=== PATIENT | male | born 1990 | race Caucasian/White ===

== ENCOUNTER 2020-01-20 05:37 | Inpatient (IN) | payer SELFPAY ==
[2020-01-20] VITALS (43 sets, daily range): BP systolic 121–179; BP diastolic 62–105; PULSE 103–120; RESP 14–35; TEMP 36.3–38; O2SAT 96–100; BMI 22.9
--- NOTE | 2020-01-20 05:39 | XRR_ITS ---
PROCEDURE INFORMATION: Exam: XR Chest, 1 View Exam date and time: 01/20/2020 5:50 AM Age: 29 years old Clinical indication: Chest pain; Type not specified; Patient HX: PT refused to give history; Additional info: Cp TECHNIQUE: Imaging protocol: XR of the chest Views: 1 view. COMPARISON: No relevant prior studies available. FINDINGS: Lungs: Unremarkable. No consolidation. Pleural space: Unremarkable. No pleural effusion. No pneumothorax. Heart/Mediastinum: Unremarkable. No cardiomegaly. Bones/joints: Unremarkable. XR/XR chest 1V portable [id number] IMPRESSION: No acute findings.
--- NOTE | 2020-01-20 05:39 | ECG_ITS ---
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 Measurements Intervals [place] Rate: 99 P: 78 MS: 131 QRS: 83 QRSD: 92 T: 71 QT: 340 QTc: 438 Interpretive Statements SINUS RHYTHM No previous ECG available for comparison Electronically Signed On 01-20-2020 21:12:33 MASTER OCEAN YACHT by Noemy Hill M.D. [id number]
--- NOTE | 2020-01-20 05:44 | ED_ITS ---
HPI - Psych General: Chief Complaint: Psychiatric Symptoms Stated Complaint: SI Time Seen by Provider: 01/20/20 05:39 Source: patient and EMS Mode of arrival: EMS Limitations: no limitations History of Present Illness: HPI Narrative: Harry is a 29-year-old male who attempted suicide this morning. He drank customer care representative fluid also try to cut his throat. He does have very superficial laceration left throat. He has vomited once per EMS. Patient has no shortness of breath. Denies any other ingestions. He states he has drank some alcohol as well. Associated symptoms: Reports depression and suicidal ideation Review of Systems Const: Denies: fever(s), chills, body aches or change in appetite Eyes: Denies: blurry vision or eye discomfort ENMT: Denies: throat pain or dental pain Card: Denies: chest pain Resp: Denies: dyspnea GI: Denies: abdominal pain, nausea, vomiting or diarrhea : Denies: dysuria Musc: Denies: neck pain or back pain Skin/Breast: Denies: rash Neuro: Denies: headache(s) Psych: Reports: depression and suicidal ideation Alonzo/Lymph: Denies: easy bruising All/Imm: Denies: urticaria Physical Exam Const: COMMON NORMALS: no acute distress, patient oriented x3 and healthy appearing HENMT: COMMON NORMALS: normocephalic and atraumatic HEAD & SCALP: normocephalic and atraumatic Eye: COMMON NORMALS: Equal, round and reactive pupils present and EOMs intact bilaterally PUPIL: Yes Equal, round and reactive pupils present Neck/C-Spine: COMMON NORMALS: full ROM and supple OTHER: Very superficial less than 1 cm laceration to left side of neck Chest: COMMONS NORMALS: normal inspection of the chest and normal palpation of entire chest wall Resp: COMMON NORMALS: normal respiratory effort, No retractions, No use of accessory muscles and clear to auscultation bilaterally AUSCULTATION: clear to auscultation bilaterally Cardio: COMMON NORMALS: regular rate, regular rhythm and No murmurs present (Cardio) RATE: regular rate RHYTHM: regular rhythm GI: COMMON NORMALS: Normal to inspection, nondistended, normoactive bowel sounds present, Soft to palpation, non-tender and no masses PALPATION: Yes Soft to palpation Extremity: COMMON NORMALS: normal to inspection and full ROM Neuro: COMMON NORMALS: patient oriented x3, moves all extremities and no focal motor deficits Psych: COMMON NORMALS: mental status grossly normal, Normal thought process present and cooperative THOUGHT PROCESS: Normal thought process present THOUGHT CONTENT: Yes Suicidality present Skin: COMMON NORMALS: no rashes or lesions noted and no wounds GENERAL SKIN EXAM: no rashes or lesions noted MDM - Psych MDM Narrative: Medical decision making narrative: Patient presents here with a suicide attempt after drinking customer care representative fluid. He has no signs of aspiration here but does have an elevated white count had some vomiting. I spoke to hospitalist and will admit to the ICU to monitor his pulmonary function. I believe after 24-hour stay he will be stable for transfer to the psych unit. I also spoke to the psychiatrist who is consulted. Patient has been stable on the ER. Lab Data: Labs: Lab Results 01/20/20 01/20/20 Range/Units 05:43 05:43 WBC 19.5 H (4.0-10.0) 10^3/ uL RBC 5.90 H (4.1-5.3) 10^6/u L Hgb 11.6 L (11.7-16.6) g/dL Hct 37.2 L (42.0-52.0) % MCV 63.1 L (80-94) fL MCH 19.7 L (28.0-34.0) pg MCHC 31.2 (30.0-36.0) g/dL RDW 18.3 H (12.1-15.1) % Plt Count 647 H (130-400) 10^3/c mm MPV 8.8 (7.4-10.4) fL Neut % (Auto) 60.1 % Lymph % (Auto) 26.5 % Todd % (Auto) 12.0 % Eos % (Auto) 0.2 % Baso % (Auto) 0.6 % Neut # (Auto) 11.73 H (1.8-7.7) 10^3/u L Lymph # (Auto) 5.2 H (0.8-4.8) 10^3/u L Todd # (Auto) 2.3 H (0.2-0.9) 10^3/u L Eos # (Auto) 0.0 (0.0-0.8) 10^3/u L Baso # (Auto) 0.1 (0.0-0.1) 10^3/u L Nucleated RBC % (a uto) 1.8 % Nucleated RBCs # 0.4 /100WBC Sodium 137 (136-145) mmol/L Potassium 3.8 (3.5-5.1) mmol/L Chloride 101 (98-107) mmol/L Carbon Dioxide 21 L (22-29) mmol/L Anion Gap 18.8 (5-19) BUN 23 H (6-20) mg/dL Creatinine 0.6 L (0.7-1.2) mg/dL GFR Calculation 160.4 H (90-130) mL/min Glucose 85 (65-115) mg/dL Calculated Osmolal ity 287 (285-295) mOsm/k g Calcium 9.3 (8.5-10.5) mg/dL Total Bilirubin 1.3 H (0.15-1.2) mg/dL AST 71 H (0-40) U/L ALT 90 H (0-41) U/L Alkaline Phosphata se 115 (40-130) IU/L Total Protein 7.6 (6.6-8.7) g/dL Albumin 4.5 (3.5-5.2) g/dL Globulin 3.1 (1.3-4.6) g/dL Salicylates < 0.3 L (3-10) mg/dL Acetaminophen < 5.0 L (10-30) ug/mL Ethyl Alcohol 39 H (0-10) mg/dL Imaging Data^: CXR: Attestation: I personally reviewed and interpreted this imaging study as follows: My impression: nsr hr [address] or t wave abnormalities qrs 92 qtc 396 Critical Care Time Critical Care Time: Critical Care Time: Yes Total Critical Care Time: 36 Attestation: [address] [address] [address] Scan Report Signed Patient: Israel Morataya Unit #: [id number] : 07/07/1936 Age/Sex: 83 / M ADM Date: 01/20/20 Loc: ER Room/Bed: Attending Dr: Ordering Provider/Ordering MD: Amilcar Connor MD Date of Service: 01/20/20 Procedure(s): CT abdomen pelvis w con* [id number] Accession Number(s): [id number] Report Number: [id number] PROCEDURE INFORMATION: Exam: CT Abdomen And Pelvis With Contrast Exam date and time: 01/20/2020 6:55 AM Age: 83 years old Clinical indication: Abdominal pain; Localized; Right upper quadrant (ruq); Prior surgery; Surgery date: 6+ months; Surgery type: Hernia, appy, cabg; Additional info: Abd pain TECHNIQUE: Imaging protocol: Computed tomography of the abdomen and pelvis with intravenous contrast. Radiation optimization: All CT scans at this facility use at least one of these dose optimization techniques: automated exposure control; mA and/or kV adjustment per patient size (includes targeted exams where dose is matched to clinical indication); or iterative reconstruction. Contrast material: VISIPAQUE 320; Contrast volume: 95 ml; Contrast route: INTRAVENOUS (IV); COMPARISON: Right upper quadrant ultrasound 01/20/20 RADIATION DOSE METRICS: Total DLP (mGy-cm): 523.82 FINDINGS: Pleural space: Interstitial prominence, trace airspace disease, and mild pleural thickening. Coronary artery calcification. Liver: Hepatic granulomata. Gallbladder and bile ducts: Markedly abnormal gallbladder with dilatation, cholelithiasis, high attenuation bile, infiltration of pericholecystic fat, and pericholecystic fluid. The findings would be consistent with acute cholecystitis in the appropriate clinical setting. No biliary ductal dilatation. Pancreas: Ultrasound detected pancreatic ductal dilatation is poorly visualized on CT. No focal pancreatic mass. Spleen: Splenic granulomata. Adrenal glands: Unremarkable adrenals. Kidneys and ureters: 5 mm nodular hypodensity in the lateral right kidney which is too small to accurately characterize. No hydronephrosis. Stomach and bowel: Mild wall thickening in the nondistended stomach. No significant small bowel dilatation. Prominent stool and diverticula, without pericolonic inflammation. Localized wall thickening in the a padded flexure. Appendix: Appendix not visualized. Intraperitoneal space: No dependent free fluid in the pelvis. Vasculature: Prominent vascular calcification and atherosclerotic plaque. No abdominal aortic aneurysm. Lymph nodes: Subcentimeter lymph nodes. Urinary bladder: Bladder dilatation. Reproductive: Poorly characterized 1.4 cm nodular hypodensity in the left inferolateral aspect of the prostate, along with calcifications and inhomogeneous attenuation. Bones/joints: 2.4 cm intraosseous hemangioma in the L4 vertebral body. Osteopenia and degenerative change. Soft tissues: Mild symmetric infiltration of subcutaneous fat in the anterior abdominal wall. CT/CT abdomen pelvis w con* [id number] IMPRESSION: 1. Markedly abnormal gallbladder with dilatation, cholelithiasis, high attenuation bile, infiltration of pericholecystic fat, and pericholecystic fluid. The findings would be consistent with acute cholecystitis in the appropriate clinical setting. 2. Additional findings as described above. Discharge Plan Discharge Patient Disposition: Admitted As Inpatient Clinical Impression: Suicidal ideation, Overdose Condition: Stable Coding Level of Care Code ED [employer] Professor for Sujey Fwd Exam Comprehensive
[2020-01-20] MEDS: LORazepam 2 mg/mL INJ 1 mL IVP ×5 (05:52→12:25)
[2020-01-20 05:54] LABS: Basophils # 0.1 10^3/uL (0.0-0.1); Basophils % 0.6 %; Eosinophils % 0.2 %; Hematocrit 37.2 % (42.0-52.0); Hemoglobin 11.6 g/dL (11.7-16.6); Lymphocytes # 5.2 10^3/uL (0.8-4.8); Lymphocytes % 26.5 %; Mean Corpuscular HGB Conc 31.2 g/dL (30.0-36.0); Mean Corpuscular Hemoglobin 19.7 pg (28.0-34.0); Mean Corpuscular Volume 63.1 fL (80-94); Mean Platelet Volume 8.8 fL (7.4-10.4); Monocytes # 2.3 10^3/uL (0.2-0.9); Neutrophils # 11.73 10^3/uL (1.8-7.7); Neutrophils % 60.1 %; Nucleated Red Blood Cells # 0.4 /100WBC; Nucleated Red Blood Cells % 1.8 %; Platelet Count 647 10^3/cmm (130-400); Red Cell Distribution Width 18.3 % (12.1-15.1); White Blood Count 19.5 10^3/uL (4.0-10.0)
[2020-01-20 06:19] LABS: Acetaminophen < 5.0 ug/mL (10-30); Alanine Aminotransferase 90 U/L (0-41); Albumin Level 4.5 g/dL (3.5-5.2); Alcohol Level 39 mg/dL (0-10); Alkaline Phosphatase 115 IU/L (40-130); Anion Gap 18.8 (5-19); Aspartate Amino Transferase 71 U/L (0-40); Blood Urea Nitrogen 23 mg/dL (6-20); Calcium 9.3 mg/dL (8.5-10.5); Carbon Dioxide 21 mmol/L (22-29); Chloride 101 mmol/L (98-107); Globulin 3.1 g/dL (1.3-4.6); Glomerular Filtration Rate 160.4 mL/min (90-130); Glucose 85 mg/dL (65-115); Osmolality Calculated 287 mOsm/kg (285-295); Potassium 3.8 mmol/L (3.5-5.1); Salicylate < 0.3 mg/dL (3-10); Sodium 137 mmol/L (136-145); Total Bilirubin 1.3 mg/dL (0.15-1.2); Total Protein 7.6 g/dL (6.6-8.7)
--- NOTE | 2020-01-20 06:44 | PC.NURSE ---
attempted to remove silver ring from R 4th finger while pt was sedated. Pt attempted to bite staff
[2020-01-20] MEDS: haloperidol inj 5 mg/mL INJ 1 mL IM ×2 (07:39→08:52)
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
--- NOTE | 2020-01-20 09:27 | PC.NURSE ---
Patient Behaviors Patient has been physically restless since day shift arrival at 0700. Tech and RN had to continuously redirect patient into bed, assisted patient to bedside commode multiple times, patient would not use bedside commode and had bowel movements in his scrubs, bed, or directly on the floor. Patient was cleaned, dressed with clean scrubs/briefs, new sheets replaced, and redirected back to bed multiple times. Patient continued to get out of bed and almost fall due to medications and patient condition prior to arrival. Patient swung at nurse when attempt to clean feces off patient. Patient stated he was trying to leave. Security and extra hands were called to assist. Patient sat himself in floor for a brief period before standing and passing diarrhea bowel movement into floor and wall. Patient was cleaned up, placed into a new brief, and placed into restraint bed. Patient was cleaned of feces again with clean wet wash rags and given more medication to help calm patient.
--- NOTE | 2020-01-20 10:43 | PC.NURSE ---
patients cellphone released to grandmother
[2020-01-20 10:48] LABS: Creatine Phosphokinase 829 U/L (39-308)
--- NOTE | 2020-01-20 11:05 | PC.NURSE ---
Talked with Pete at poison control at 1105, updated him on patients behavioral status, lab results, medications given, and current vital signs. Pete stated he would call back later to talk to ICU with an update. No further instructions given at this time.
[2020-01-20] MEDS: LORazepam 2 mg/mL INJ 1 mL 4 MG IVP (13:01)
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
[2020-01-20] MEDS: sodium chloride 0.9% 1,000 ML 999 ML IV ×2 (14:40→15:15)
--- NOTE | 2020-01-20 15:05 | PC.NURSE ---
After ketamine administration and straight catherization, patients feet were released from restraints.
--- NOTE | 2020-01-20 15:20 | PC.NURSE ---
Restraint update Patients left arm released from restraint at 1500
[2020-01-20 15:24] LABS: Amphetamines Screen Urine Positive (Negative); Barbiturates Screen Urine Negative (Negative); Benzodiazepines Screen Urine Positive (Negative); Cocaine Screen Urine Negative (Negative); Opiate Screen Urine Negative (Negative); PCP Screen Urine Negative (Negative); THC Screen Urine Negative (Negative)
[2020-01-20 15:54] LABS: Basophils # 0.1 10^3/uL (0.0-0.1); Basophils % 0.4 %; Hematocrit 33.8 % (42.0-52.0); Hemoglobin 10.5 g/dL (11.7-16.6); Lymphocytes # 2.6 10^3/uL (0.8-4.8); Lymphocytes % 11.2 %; Mean Corpuscular HGB Conc 31.1 g/dL (30.0-36.0); Mean Corpuscular Hemoglobin 19.8 pg (28.0-34.0); Mean Corpuscular Volume 63.7 fL (80-94); Mean Platelet Volume 9.2 fL (7.4-10.4); Monocytes # 2.5 10^3/uL (0.2-0.9); Monocytes % 10.7 %; Neutrophils # 18.06 10^3/uL (1.8-7.7); Neutrophils % 77.1 %; Nucleated Red Blood Cells # 0.3 /100WBC; Nucleated Red Blood Cells % 1.1 %; Platelet Count 583 10^3/cmm (130-400); Red Blood Count 5.31 10^6/uL (4.1-5.3); Red Cell Distribution Width 17.8 % (12.1-15.1); White Blood Count 23.4 10^3/uL (4.0-10.0)
[2020-01-20] MEDS: sodium chloride 0.9% 1,000 ML 150 ML IV (16:30)
[2020-01-20 16:42] LABS: Creatine Phosphokinase 986 U/L (39-308)
[2020-01-20 17:30] LABS: ABG PCO2 34.5 mmHg (35-45); Arterial Blood Gas Hematocrit 36.9 % (42-52); Base Excess ABG -8.6 mmol/L (-2.0-2.0); Blood Gas Allen Test Pos; Blood Gas Operator Identificat CAK; Blood Gas Sample Site Radial, left; Blood Gas Sample Type Arterial; Carboxyhemoglobin 1.3 %THgb (0.4-20.1); HGB O2 Sat 81.7 % (95-100); Ionized Calcium Level - ABG 1.2 mmol/L (1.1-1.4); Oxygen Device ROOM AIR; Oxygen Saturation ABG 83.6; Potassium Level - ABG 4.1 mmol/L (3.5-5.0); Total Hemoglobin 12.1 g/dL (14-18)
[2020-01-20] MEDS: vecuronium 10 mg SDV IVP (17:40)
[2020-01-20] MEDS: succinylcholine 20 mg/mL SDV 10mL 200 MG IVP (17:40)
[2020-01-20 17:43] LABS: CKMB 5.4 ng/mL (0-10.4)
--- NOTE | 2020-01-20 17:44 | ED_ITS ---
HPI - Psych General: Chief Complaint: Psychiatric Symptoms Stated Complaint: SI Time Seen by Provider: 01/20/20 05:39 Source: patient and EMS Mode of arrival: EMS [facility] ED PFSH: Medical History (Updated 01/20/20 @ 09:37 by Filomena Robles MD) Hepatitis C Polysubstance abuse Surgical History (Updated 01/20/20 @ 09:05 by Filomena Robles MD) History of dental surgery Hx of tonsillectomy Family History (Updated 01/20/20 @ 09:22 by Filomena Robles MD) Grandmother Psychiatric illness depression Social History (Updated 01/20/20 @ 09:25 by Filomena Robles MD) Smoking and tobacco status: current every day smoker cigarettes Packs smoked per day: 1 Alcohol intake: unknown Substance/Drug Use: current Substance/Drug use type: Marijuana, Opiates and Methamphetamine Household members: family Marital status: Single Current occupational status: unemployed Procedures Intubation Time out performed: No sedative: Etomidate Mg Given: 40 paralytic: Succinylcholine Mg Given: 200 Laryngoscope: Tamera (4) ET Tube Size: 8 ET Tube Uncuffed: Yes Tube Secured Depth (cm): 24 Tube Secured Location: teeth Tube Placement Confirmation: visualized tube passing through cords and confirmation by capnometry Patient Tolerated Procedure: well and no complications Intubation Complications: none MDM - Psych MDM Narrative: Medical decision making narrative: 29-year-old male still in the ER after intact for ICU admission, as there are is no bed ready for him quite yet. He had a period of desaturation on the monitor. He was also gagging, and we were worried he may vomit. Blood gas was obtained and showed despite good saturations on the monitor, his PO2 was actually 54. His pH was 7.3. The pH is likely metabolic as his bicarbonate level is down still, but because of the hypoxia and his inability to maintain his airway along with his risk of vomiting, it was thought safest to intubate the patient. This was accomplished with no complications here in the ER. Lab Data: Labs: Lab Results 01/20/20 01/20/20 01/20/20 Range/Units 05:43 05:43 05:43 WBC 19.5 H (4.0-10.0) 10^3/ uL RBC 5.90 H (4.1-5.3) 10^6/u L Hgb 11.6 L (11.7-16.6) g/dL Hct 37.2 L (42.0-52.0) % MCV 63.1 L (80-94) fL MCH 19.7 L (28.0-34.0) pg MCHC 31.2 (30.0-36.0) g/dL RDW 18.3 H (12.1-15.1) % Plt Count 647 H (130-400) 10^3/c mm MPV 8.8 (7.4-10.4) fL Neut % (Auto) 60.1 % Lymph % (Auto) 26.5 % Marin % (Auto) 12.0 % Eos % (Auto) 0.2 % Baso % (Auto) 0.6 % Neut # (Auto) 11.73 H (1.8-7.7) 10^3/u L Lymph # (Auto) 5.2 H (0.8-4.8) 10^3/u L Marin # (Auto) 2.3 H (0.2-0.9) 10^3/u L Eos # (Auto) 0.0 (0.0-0.8) 10^3/u L Baso # (Auto) 0.1 (0.0-0.1) 10^3/u L Nucleated RBC % (a uto) 1.8 % Nucleated RBCs # 0.4 /100WBC Specimen Type Sample Site ABG pH (7.35-7.45) ABG pCO2 (35-45) mmHg ABG pO2 (80.0-100.0) mmH g ABG HCO3 (22-26) mmol/L ABG O2 Saturation ABG Base Excess (-2.0-2.0) mmol/ L Mj Test A-a O2 Gradient (5-10) mmHg Hematocrit (42-52) % Hgb O2 Saturation (95-100) % Carboxyhemoglobin (0.4-20.1) %THgb Methemoglobin (0.4-1.5) % Total Hemoglobin (14-18) g/dL Ionized Calcium (1.1-1.4) mmol/L O2 Delivery Device FiO2 % Pv Design And Installation Technician ID Sodium 137 (136-145) mmol/L Potassium 3.8 (3.5-5.1) mmol/L Chloride 101 (98-107) mmol/L Carbon Dioxide 21 L (22-29) mmol/L Anion Gap 18.8 (5-19) BUN 23 H (6-20) mg/dL Creatinine 0.6 L (0.7-1.2) mg/dL GFR Calculation 160.4 H (90-130) mL/min Glucose 85 (65-115) mg/dL Calculated Osmolal ity 287 (285-295) mOsm/k g Calcium 9.3 (8.5-10.5) mg/dL Total Bilirubin 1.3 H (0.15-1.2) mg/dL AST 71 H (0-40) U/L ALT 90 H (0-41) U/L Alkaline Phosphata se 115 (40-130) IU/L Creatine Kinase 829 H* (39-308) U/L CK-MB (CK-2) (0-10.4) ng/mL CK-MB (CK-2) Rel I ndex (0.0-5.3) % Total Protein 7.6 (6.6-8.7) g/dL Albumin 4.5 (3.5-5.2) g/dL Globulin 3.1 (1.3-4.6) g/dL Salicylates < 0.3 L (3-10) mg/dL Urine Opiates Scre en (Negative) ng/mL Acetaminophen < 5.0 L (10-30) ug/mL Ur Barbiturates Sc reen (Negative) ng/mL Ur Phencyclidine S crn (Negative) ng/mL Ur Amphetamines Sc reen (Negative) ng/mL U Benzodiazepines Scrn (Negative) ng/mL Urine Cocaine Scre en (Negative) ng/mL U Marijuana (THC) Screen (Negative) ng/mL Ethyl Alcohol 39 H (0-10) mg/dL 01/20/20 01/20/20 01/20/20 Range/Units 14:51 15:33 15:33 WBC 23.4 H (4.0-10.0) 10^3/ uL RBC 5.31 H (4.1-5.3) 10^6/u L Hgb 10.5 L (11.7-16.6) g/dL Hct 33.8 L (42.0-52.0) % MCV 63.7 L (80-94) fL MCH 19.8 L (28.0-34.0) pg MCHC 31.1 (30.0-36.0) g/dL RDW 17.8 H (12.1-15.1) % Plt Count 583 H (130-400) 10^3/c mm MPV 9.2 (7.4-10.4) fL Neut % (Auto) 77.1 % Lymph % (Auto) 11.2 % Marin % (Auto) 10.7 % Eos % (Auto) 0.0 % Baso % (Auto) 0.4 % Neut # (Auto) 18.06 H (1.8-7.7) 10^3/u L Lymph # (Auto) 2.6 (0.8-4.8) 10^3/u L Marin # (Auto) 2.5 H (0.2-0.9) 10^3/u L Eos # (Auto) 0.0 (0.0-0.8) 10^3/u L Baso # (Auto) 0.1 (0.0-0.1) 10^3/u L Nucleated RBC % (a uto) 1.1 % Nucleated RBCs # 0.3 /100WBC Specimen Type Sample Site ABG pH (7.35-7.45) ABG pCO2 (35-45) mmHg ABG pO2 (80.0-100.0) mmH g ABG HCO3 (22-26) mmol/L ABG O2 Saturation ABG Base Excess (-2.0-2.0) mmol/ L Mj Test A-a O2 Gradient (5-10) mmHg Hematocrit (42-52) % Hgb O2 Saturation (95-100) % Carboxyhemoglobin (0.4-20.1) %THgb Methemoglobin (0.4-1.5) % Total Hemoglobin (14-18) g/dL Ionized Calcium (1.1-1.4) mmol/L O2 Delivery Device FiO2 % Pv Design And Installation Technician ID Sodium (136-145) mmol/L Potassium (3.5-5.1) mmol/L Chloride (98-107) mmol/L Carbon Dioxide (22-29) mmol/L Anion Gap (5-19) BUN (6-20) mg/dL Creatinine (0.7-1.2) mg/dL GFR Calculation (90-130) mL/min Glucose (65-115) mg/dL Calculated Osmolal ity (285-295) mOsm/k g Calcium (8.5-10.5) mg/dL Total Bilirubin (0.15-1.2) mg/dL AST (0-40) U/L ALT (0-41) U/L Alkaline Phosphata se (40-130) IU/L Creatine Kinase 986 H* (39-308) U/L CK-MB (CK-2) 5.4 (0-10.4) ng/mL CK-MB (CK-2) Rel I ndex (0.0-5.3) % Total Protein (6.6-8.7) g/dL Albumin (3.5-5.2) g/dL Globulin (1.3-4.6) g/dL Salicylates (3-10) mg/dL Urine Opiates Scre en Negative (Negative) ng/mL Acetaminophen (10-30) ug/mL Ur Barbiturates Sc reen Negative (Negative) ng/mL Ur Phencyclidine S crn Negative (Negative) ng/mL Ur Amphetamines Sc reen Positive H (Negative) ng/mL U Benzodiazepines Scrn Positive H (Negative) ng/mL Urine Cocaine Scre en Negative (Negative) ng/mL U Marijuana (THC) Screen Negative (Negative) ng/mL Ethyl Alcohol (0-10) mg/dL 15/20 Range/Units 17:19 WBC (4.0-10.0) 10^3/ uL RBC (4.1-5.3) 10^6/u L Hgb (11.7-16.6) g/dL Hct (42.0-52.0) % MCV (80-94) fL MCH (28.0-34.0) pg MCHC (30.0-36.0) g/dL RDW (12.1-15.1) % Plt Count (130-400) 10^3/c mm MPV (7.4-10.4) fL Neut % (Auto) % Lymph % (Auto) % Marin % (Auto) % Eos % (Auto) % Baso % (Auto) % Neut # (Auto) (1.8-7.7) 10^3/u L Lymph # (Auto) (0.8-4.8) 10^3/u L Marin # (Auto) (0.2-0.9) 10^3/u L Eos # (Auto) (0.0-0.8) 10^3/u L Baso # (Auto) (0.0-0.1) 10^3/u L Nucleated RBC % (a uto) % Nucleated RBCs # /100WBC Specimen Type Arterial Sample Site Radial, left ABG pH 7.30 L (7.35-7.45) ABG pCO2 34.5 L (35-45) mmHg ABG pO2 54.0 L (80.0-100.0) mmH g ABG HCO3 17.0 L (22-26) mmol/L ABG O2 Saturation 83.6 ABG Base Excess -8.6 L (-2.0-2.0) mmol/ L Mj Test Pos A-a O2 Gradient 7.0 (5-10) mmHg Hematocrit 36.9 L (42-52) % Hgb O2 Saturation 81.7 L (95-100) % Carboxyhemoglobin 1.3 (0.4-20.1) %THgb Methemoglobin 1.0 (0.4-1.5) % Total Hemoglobin 12.1 L (14-18) g/dL Ionized Calcium 1.2 (1.1-1.4) mmol/L O2 Delivery Device Room air FiO2 21.0 % Pv Design And Installation Technician ID Cak Sodium 138.0 (136-145) mmol/L Potassium 4.1 (3.5-5.1) mmol/L Chloride (98-107) mmol/L Carbon Dioxide (22-29) mmol/L Anion Gap (5-19) BUN (6-20) mg/dL Creatinine (0.7-1.2) mg/dL GFR Calculation (90-130) mL/min Glucose 68.0 L (65-115) mg/dL Calculated Osmolal ity (285-295) mOsm/k g Calcium (8.5-10.5) mg/dL Total Bilirubin (0.15-1.2) mg/dL AST (0-40) U/L ALT (0-41) U/L Alkaline Phosphata se (40-130) IU/L Creatine Kinase (39-308) U/L CK-MB (CK-2) (0-10.4) ng/mL CK-MB (CK-2) Rel I ndex (0.0-5.3) % Total Protein (6.6-8.7) g/dL Albumin (3.5-5.2) g/dL Globulin (1.3-4.6) g/dL Salicylates (3-10) mg/dL Urine Opiates Scre en (Negative) ng/mL Acetaminophen (10-30) ug/mL Ur Barbiturates Sc reen (Negative) ng/mL Ur Phencyclidine S crn (Negative) ng/mL Ur Amphetamines Sc reen (Negative) ng/mL U Benzodiazepines Scrn (Negative) ng/mL Urine Cocaine Scre en (Negative) ng/mL U Marijuana (THC) Screen (Negative) ng/mL Ethyl Alcohol (0-10) mg/dL Discharge Plan Discharge Patient Disposition: Admitted As Inpatient Clinical Impression: Suicidal ideation Overdose Qualifiers: Encounter type: initial encounter Injury intent: intentional self-harm Qualified Code(s): T50.902A - Poisoning by unspecified drugs, medicaments and biological substances, intentional self-harm, initial encounter Condition: Stable Coding Level of Care Code ED Medical Assisting Instructor for Sujey Angel
[2020-01-20] MEDS: propofol 1,000 MG/100 ML INJ 2.2 MG IV (17:45)
--- NOTE | 2020-01-20 17:49 | XRR_ITS ---
PROCEDURE INFORMATION: Exam: XR Chest, 1 View Exam date and time: 01/20/2020 5:50 PM Age: 29 years old Clinical indication: Device placement; Ett placement (vent status); Additional info: Et tube TECHNIQUE: Imaging protocol: XR of the chest Views: 1 view. COMPARISON: CR XR chest 1V portable [id number] 01/20/2020 2:23 PM FINDINGS: Tubes, catheters and devices: Tip of the endotracheal tube is appropriately position 5 cm above the mara. The tip of the NG tube is in the proximal stomach with the side port in the distal esophagus. Lungs: Unremarkable. No consolidation. Pleural space: Unremarkable. No pleural effusion. No pneumothorax. Heart/Mediastinum: Unremarkable. No cardiomegaly. Bones/joints: Unremarkable. XR/XR chest 1V portable [id number] IMPRESSION: Interval placement of endotracheal tube with tip 5 cm above mara and NG tube with tip in proximal stomach.
[2020-01-20 18:34] LABS: ABG PCO2 38.8 mmHg (35-45); ABG PH Result 7.27 (7.35-7.45); Arterial Blood Gas Hematocrit 36.6 % (42-52); Base Excess ABG -8.5 mmol/L (-2.0-2.0); Blood Gas Allen Test Pos; Blood Gas Sample Type Arterial; Carboxyhemoglobin 0.9 %THgb (0.4-20.1); HCO3 ABG 17.8 mmol/L (22-26); HGB O2 Sat 98.2 % (95-100); Ionized Calcium Level - ABG 1.2 mmol/L (1.1-1.4); Methemoglobin 1.2 % (0.4-1.5); Oxygen Saturation ABG > 100.0; Potassium Level - ABG 4.5 mmol/L (3.5-5.0); Total Hemoglobin 11.9 g/dL (14-18)
[2020-01-20] MEDS: fentaNYL 50 mcg/mL INJ 2mL 200 MCG IVP ×2 (18:34→23:50)
[2020-01-20 18:36] LABS: Alveolar-Arterial Oxygen Gradi 23.2 mmHg (5-10); Blood Gas Operator Identificat KINCH; Blood Gas Sample Site Radial, left; Blood Gas Tidal Volume 0.52; Oxygen Device VENT
[2020-01-20] MEDS: piperacillin-tazobactam 3.375 GM in sodium chloride 0.9% (plus) 50 ML IV (19:17)
[2020-01-20] MEDS: dexmedetomidine 400 MCG in sodium chloride 0.9% (100 ml) 100 ML IV (19:37)
[2020-01-20] MEDS: sodium chloride 0.9% 1,000 ML 125 ML IV ×2 (19:39→23:36)
[2020-01-21] VITALS (142 sets, daily range): BP systolic 80–127; BP diastolic 39–71; PULSE 72–106; RESP 14–30; TEMP 36.8–37.7; O2SAT 91–100; BMI 24.5
[2020-01-21] MEDS: acetaminophen 650 mg Supp PR (00:06)
[2020-01-21] MEDS: propofol 10 mg/mL SDV 20 mL 40 MG IVP (00:11)
[2020-01-21 00:49] LABS: ABG PCO2 32.4 mmHg (35-45); ABG PH Result 7.35 (7.35-7.45); Arterial Blood Gas Hematocrit 33.9 % (42-52); Blood Gas Allen Test Pos; Blood Gas Sample Site Radial, right; Blood Gas Sample Type Arterial; HCO3 ABG 17.8 mmol/L (22-26); Oxygen Device VENT; PO2 ABG 96.7 mmHg (80.0-100.0)
[2020-01-21] MEDS: piperacillin-tazobactam 3.375 GM in sodium chloride 0.9% (plus) 50 ML IV ×3 (02:53→18:34)
[2020-01-21 04:29] LABS: Basophils # 0.1 10^3/uL (0.0-0.1); Basophils % 0.5 %; Eosinophils % 0.1 %; Hematocrit 33.1 % (42.0-52.0); Hemoglobin 10.2 g/dL (11.7-16.6); Lymphocytes # 3.8 10^3/uL (0.8-4.8); Lymphocytes % 14.7 %; Mean Corpuscular HGB Conc 30.8 g/dL (30.0-36.0); Mean Corpuscular Hemoglobin 19.8 pg (28.0-34.0); Mean Corpuscular Volume 64.3 fL (80-94); Mean Platelet Volume 9.3 fL (7.4-10.4); Monocytes # 2.9 10^3/uL (0.2-0.9); Monocytes % 11.1 %; Neutrophils % 73.2 %; Nucleated Red Blood Cells # 0.3 /100WBC; Platelet Count 533 10^3/cmm (130-400); Red Blood Count 5.15 10^6/uL (4.1-5.3); Red Cell Distribution Width 18.1 % (12.1-15.1)
[2020-01-21 04:53] LABS: Alanine Aminotransferase 55 U/L (0-41); Albumin Level 3.6 g/dL (3.5-5.2); Alkaline Phosphatase 100 IU/L (40-130); Aspartate Amino Transferase 50 U/L (0-40); Blood Urea Nitrogen 14 mg/dL (6-20); Calcium 8.7 mg/dL (8.5-10.5); Carbon Dioxide 17 mmol/L (22-29); Chloride 104 mmol/L (98-107); Globulin 2.5 g/dL (1.3-4.6); Glomerular Filtration Rate 100.5 mL/min (90-130); Glucose 70 mg/dL (65-115); Osmolality Calculated 277 mOsm/kg (285-295); Sodium 134 mmol/L (136-145); Total Bilirubin 1.8 mg/dL (0.15-1.2); Total Protein 6.1 g/dL (6.6-8.7)
[2020-01-21 05:39] LABS: ABG PCO2 35.8 mmHg (35-45); ABG PH Result 7.32 (7.35-7.45); Arterial Blood Gas Hematocrit 33.9 % (42-52); Base Excess ABG -6.8 mmol/L (-2.0-2.0); Blood Gas Operator Identificat JB; Blood Gas Sample Site Brachial, right; Blood Gas Sample Type Arterial; HCO3 ABG 18.6 mmol/L (22-26); Oxygen Device VENT
[2020-01-21] MEDS: propofol 1,000 MG/100 ML INJ 30 MG IV (05:48)
[2020-01-21 06:06] LABS: Creatine Phosphokinase 495 U/L (39-308)
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
[2020-01-21] MEDS: sodium chloride 0.9% 1,000 ML 125 ML IV ×3 (08:03→23:45)
[2020-01-21] MEDS: pantoprazole 40 mg SDV IVP (08:03)
--- NOTE | 2020-01-21 08:55 | PC.RESP ---
SMOKING CESSATION INFORMATION SENT TO PATIENT.
--- NOTE | 2020-01-21 08:57 | XR_ITS ---
WS: [id number] Exam: XR chest 1V portable [id number] Date/Time of Exam: 01/21/2020 8:57 AM Reason For Exam: aspiration Comparison 01/20/2020. The lungs are clear and fully inflated. Normal heart size. No pleural effusions. ET tube ends about 4 cm above the mara in good position. An NG tube is in place 7 barely entering the stomach. The tube should be advanced another 4 to 5 cm for optimal position. The side-port of the tube is in the lower esophagus XR/XR chest 1V portable [id number] IMPRESSION: 1. No acute cardiopulmonary finding. 2. ET tube in good position unchanged. 3. Enteric tube barely in the stomach. The side-port of the tube is in the lowe r esophagus. The tube should be advanced another 4 to 5 cm for optimal position .
--- NOTE | 2020-01-21 09:31 | PC.CHAP ---
Pastoral Care Encounter/Spiritual Assessment Type of Contact [] Declined ways operator visit [] Patient/Family/Request visit [] Outpatient visit [] Follow-up visit [] Physician referral [] Code/Alert [] Routine visit [] Staff referral [] Actively dying [] Patient sleeping [] Family support [] [] Out of room [] Palliative care [] [] Receiving care in room [] Pre-surgical visit [] Trauma [] Long length of stay [] ICU visit [] Other: Relational/Emotional Strength [] Patient feels connected with others/family/visitors/staff [] Distress [] Loneliness/isolation [] Abandonment Spirituality of Patient [] Person of Shreya [] Attends Mandaen of their Shreya [] Believes in Prayer [] Reads Bible or Islam materials [] There are Spiritual issues to be addressed Service Sprinkler Helper Interventions [x] Prayer [] Active listening [] Non-anxious presence [] Spiritual/emotional support [] Crisis/trauma care [] Spiritual counseling [] Bereavement support [] Provided bereavement packet [] Provided Bible/devotional materials [] Provided toy/stuffed animal, coloring book to patient or family member [] Provided Communion [] Anointing/[place] [] Salvation [x] Completed spiritual assessment [] Other: Impact on Illness or Injury [] Angry [] Fearful [] Anxious [] Often cries [] Exhaustion [] Unable to work [] Unable to attend hoahaoism [] Unable to walk/stand [] Unable to read [] Unable to drive [] Unable to eat/drink [] Unable to sleep [] Unable to be with family [] Patient intubated [] Other: Summary Time spent with patient
[2020-01-21] MEDS: propofol 1,000 MG/100 ML INJ 17.4 MG IV (10:39)
[2020-01-21] MEDS: dexmedetomidine 400 MCG in sodium chloride 0.9% (100 ml) 100 ML IV (10:41)
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
--- NOTE | 2020-01-21 12:49 | PC.NURSE ---
dressing change at bedside examining patient wounds to buttocks and perineal area. per verbal order, nurse redressed wounds with triple antibiotic secured with telfa and held down with foam tape. patient tolerated dressing well. bleeding to wound noted during dressing change. sloughing of skin noted. patient tolerated well.
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
[2020-01-21] MEDS: vancomycin 1,000 MG in sodium chloride 0.9% 250 ML 250 MG IV ×2 (14:07→21:13)
[2020-01-21] MEDS: propofol 1,000 MG/100 ML INJ 15.2 MG IV (16:36)
--- NOTE | 2020-01-21 18:05 | XRR_ITS ---
PROCEDURE INFORMATION: Exam: XR Chest, 1 View Exam date and time: 01/21/2020 6:10 PM Age: 29 years old Clinical indication: Other: Change in vitals/secretions TECHNIQUE: Imaging protocol: XR of the chest Views: 1 view. COMPARISON: CR XR chest 1V portable [id number] 01/21/2020 9:06 AM FINDINGS: Tubes, catheters and devices: The ETT and nasogastric tube appear stable in position. NOTE: The sidehole of the nasogastric tube remains in the distal esophagus. Advancement by approximately [address] the sidehole in the proximal stomach. Lungs: Small faint opacity in the right lung base may represent early pneumonia. Medial left basilar subsegmental atelectasis is again seen. The lungs are otherwise clear. Pleural space: Unremarkable. No pleural effusion. No pneumothorax. Heart/Mediastinum: Unremarkable. No cardiomegaly. Bones/joints: Unremarkable. XR/XR chest 1V portable [id number] IMPRESSION: Right basilar opacity which may be a early pneumonia. No other significant change.
[2020-01-21 18:20] LABS: Basophils # 0.2 10^3/uL (0.0-0.1); Basophils % 0.5 %; Eosinophils # 0.1 10^3/uL (0.0-0.8); Eosinophils % 0.3 %; Hematocrit 33.1 % (42.0-52.0); Hemoglobin 10.4 g/dL (11.7-16.6); Lymphocytes # 5.3 10^3/uL (0.8-4.8); Lymphocytes % 19.2 %; Mean Corpuscular HGB Conc 31.4 g/dL (30.0-36.0); Mean Corpuscular Hemoglobin 20.2 pg (28.0-34.0); Mean Corpuscular Volume 64.3 fL (80-94); Mean Platelet Volume 8.9 fL (7.4-10.4); Monocytes # 3.2 10^3/uL (0.2-0.9); Monocytes % 11.5 %; Neutrophils # 18.84 10^3/uL (1.8-7.7); Nucleated Red Blood Cells # 0.3 /100WBC; Nucleated Red Blood Cells % 1.1 %; Platelet Count 457 10^3/cmm (130-400); Red Blood Count 5.15 10^6/uL (4.1-5.3); Red Cell Distribution Width 18.1 % (12.1-15.1); White Blood Count 27.7 10^3/uL (4.0-10.0)
[2020-01-21] MEDS: sodium chloride 0.9% 500 ML 999 ML IV (18:24)
[2020-01-21 18:36] LABS: Alanine Aminotransferase 52 U/L (0-41); Albumin Level 3.5 g/dL (3.5-5.2); Alkaline Phosphatase 102 IU/L (40-130); Anion Gap 14.6 (5-19); Aspartate Amino Transferase 41 U/L (0-40); Blood Urea Nitrogen 13 mg/dL (6-20); Calcium 8.5 mg/dL (8.5-10.5); Carbon Dioxide 22 mmol/L (22-29); Chloride 107 mmol/L (98-107); Creatinine Clr Calc Pharmacy 145.6358; Globulin 2.9 g/dL (1.3-4.6); Glomerular Filtration Rate 115.1 mL/min (90-130); Glucose 91 mg/dL (65-115); Osmolality Calculated 288 mOsm/kg (285-295); Potassium 4.6 mmol/L (3.5-5.1); Sodium 139 mmol/L (136-145); Total Bilirubin 1.3 mg/dL (0.15-1.2); Total Protein 6.4 g/dL (6.6-8.7)
[2020-01-21] MEDS: dexmedetomidine 400 MCG in sodium chloride 0.9% (100 ml) 100 ML 13.2 MCG IV (23:46)
[2020-01-22] VITALS (101 sets, daily range): BP systolic 94–114; BP diastolic 49–68; PULSE 65–84; RESP 14–18; TEMP 36.6–37.1; O2SAT 93–100
--- NOTE | 2020-01-22 00:32 | PC.NURSE ---
Patient resting in bed on vent and sedated at this time. Patient follows commands and attempts to remove tubes and lines if awake, but can be redirected. Avilez in place draining appropriately. Lung sounds have crackles throughout. OG tube in place and draining and hooked to suction. Call light is within reach. Continue care.
[2020-01-22] MEDS: piperacillin-tazobactam 3.375 GM in sodium chloride 0.9% (plus) 50 ML IV ×3 (02:01→18:08)
[2020-01-22 04:46] LABS: ABG PCO2 38.7 mmHg (35-45); Arterial Blood Gas Hematocrit 30.2 % (42-52); Base Excess ABG -7.1 mmol/L (-2.0-2.0); Blood Gas Allen Test Pos; Blood Gas Operator Identificat JB; Blood Gas Sample Site Radial, right; Blood Gas Sample Type Arterial; HCO3 ABG 18.8 mmol/L (22-26); Oxygen Device VENT
[2020-01-22 04:58] LABS: Basophils # 0.1 10^3/uL (0.0-0.1); Basophils % 0.5 %; Eosinophils # 0.2 10^3/uL (0.0-0.8); Eosinophils % 0.7 %; Hematocrit 31.9 % (42.0-52.0); Hemoglobin 9.6 g/dL (11.7-16.6); Lymphocytes # 3.9 10^3/uL (0.8-4.8); Lymphocytes % 16.5 %; Mean Corpuscular HGB Conc 30.1 g/dL (30.0-36.0); Mean Corpuscular Hemoglobin 19.8 pg (28.0-34.0); Mean Corpuscular Volume 65.8 fL (80-94); Mean Platelet Volume 9.6 fL (7.4-10.4); Monocytes # 2.7 10^3/uL (0.2-0.9); Monocytes % 11.4 %; Neutrophils # 16.68 10^3/uL (1.8-7.7); Neutrophils % 70.4 %; Nucleated Red Blood Cells # 0.3 /100WBC; Nucleated Red Blood Cells % 1.3 %; Platelet Count 412 10^3/cmm (130-400); Red Blood Count 4.85 10^6/uL (4.1-5.3); Red Cell Distribution Width 18.1 % (12.1-15.1); White Blood Count 23.7 10^3/uL (4.0-10.0)
[2020-01-22] MEDS: vancomycin 1,000 MG in sodium chloride 0.9% 250 ML 250 MG IV (05:02)
[2020-01-22 05:33] LABS: Alanine Aminotransferase 40 U/L (0-41); Albumin Level 3.3 g/dL (3.5-5.2); Alkaline Phosphatase 97 IU/L (40-130); Aspartate Amino Transferase 29 U/L (0-40); Blood Urea Nitrogen 12 mg/dL (6-20); Calcium 8.4 mg/dL (8.5-10.5); Carbon Dioxide 19 mmol/L (22-29); Chloride 106 mmol/L (98-107); Globulin 2.5 g/dL (1.3-4.6); Glomerular Filtration Rate 160.4 mL/min (90-130); Glucose 82 mg/dL (65-115); Osmolality Calculated 287 mOsm/kg (285-295); Sodium 139 mmol/L (136-145); Total Protein 5.8 g/dL (6.6-8.7)
[2020-01-22 05:38] LABS: Vancomycin Trough 6.8 ug/mL (10-15)
[2020-01-22 05:39] LABS: Anion Gap 18.2 (5-19); Potassium 4.2 mmol/L (3.5-5.1)
--- NOTE | 2020-01-22 06:12 | PC.NURSE ---
Patient continues to rest and is intubated and sedated. Patient's lips and mouth are more swollen and looks like minor blistering is present in mouth. V/S are WNLs. Current drips are versed, fentanyl, IVF, abt, precedex per protocol and orders. Buttock is very excoriated and sloughing away tissue. Dressing applied per orders. Continue care.
[2020-01-22] MEDS: pantoprazole 40 mg SDV IVP (08:09)
[2020-01-22] MEDS: sodium chloride 0.9% 1,000 ML 125 ML IV ×2 (08:09→16:19)
[2020-01-22] MEDS: dexmedetomidine 400 MCG in sodium chloride 0.9% (100 ml) 100 ML 7.5 MCG IV (09:03)
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
--- NOTE | 2020-01-22 09:25 | PC.CHAP ---
Pastoral Care Encounter/Spiritual Assessment Type of Contact [] Declined body press operator visit [] Patient/Family/Request visit [] Outpatient visit [] Follow-up visit [] Physician referral [] Code/Alert [] Routine visit [] Staff referral [] Actively dying [] Patient sleeping [] Family support [] [] Out of room [] Palliative care [] [] Receiving care in room [] Pre-surgical visit [] Trauma [] Long length of stay [] ICU visit [] Other: Relational/Emotional Strength [] Patient feels connected with others/family/visitors/staff [] Distress [] Loneliness/isolation [] Abandonment Spirituality of Patient [] Person of Shreya [] Attends Uatsdin of their Shreya [] Believes in Prayer [] Reads Bible or Pentecostal materials [] There are Spiritual issues to be addressed Sole Leveler Machine Interventions [x] Prayer [] Active listening [] Non-anxious presence [] Spiritual/emotional support [] Crisis/trauma care [] Spiritual counseling [] Bereavement support [] Provided bereavement packet [] Provided Bible/devotional materials [] Provided toy/stuffed animal, coloring book to patient or family member [] Provided Communion [] Anointing/[place] [] Salvation [x] Completed spiritual assessment [] Other: Impact on Illness or Injury [] Angry [] Fearful [] Anxious [] Often cries [] Exhaustion [] Unable to work [] Unable to attend jainism [] Unable to walk/stand [] Unable to read [] Unable to drive [] Unable to eat/drink [] Unable to sleep [] Unable to be with family [] Patient intubated [] Other: Summary Time spent with patient
[2020-01-22] MEDS: neomycin-poly-bacitracin oint 28 gm 1 APPLIC TOPICAL (10:04)
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
--- NOTE | 2020-01-22 11:17 | CT_ITS ---
WS: [id number] CT NECK WITHOUT CONTRAST. HISTORY: assess for any pharynx/larynx swelling TECHNIQUE: Contiguous 5 mm axial images are performed through the neck without intravenous contrast. Sagittal and coronal reformats are also submitted. All CT scans at [facility] use at leas t one of these dose optimization techniques: automated exposure control; mA and/or kV adjustment per patient size (includes targeted exams where dose is matched to clinical indication); or iterative rec onstruction. CONTRAST: CONTRAST: None DLP: 500.11 mGy.cm COMPARISON: None available. Study is significantly limited without IV contrast. Evaluation of the airway is very limited without IV contrast. Patient is intubated and there is also a nasogastric tube present. Secretions are pooling in the posterior nasopharynx and oropharynx. The epiglottis is being displaced and obliterated by the endotracheal tube. Of concern are several small foci of air scattered throughout the soft tissues of the neck of uncerta in etiology. These tiny foci of air are in the subcutaneous mental region and also within this RIGHT supraclavicular region. There are a few foci of air posterior to each clavicle and also within the up per mediastinum on the RIGHT. The visualized lungs are clear with no evidence for pneumothorax. Bilat eral small cervical chain lymph nodes. These are probably reactive lymph nodes. CT/CT neck wo con [id number] IMPRESSION: 1. Patient is intubated and a nasogastric tube is visualized also. 2. Significantly limited evaluation of the pharynx and larynx with the endotra cheal tube being in position and no IV contrast. 3. There are several foci of air within the soft tissues of the neck and upper mediastinum of uncertain etiology. No pneumothorax identified. Air could be re lated to traumatic intubation, ruptured blebs or mediastinitis. Notified Javier Alonzo MD at 01/22/2020 1:32 PM.
[2020-01-22] MEDS: vancomycin 1,250 MG/250 ML PIGGYBACK 200 MG IV ×2 (11:35→19:55)
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
[2020-01-22] MEDS: dexmedetomidine 400 MCG in sodium chloride 0.9% (100 ml) 100 ML 11.3 MCG IV (21:30)
[2020-01-22] MEDS: propofol 1,000 MG/100 ML INJ 4.4 MG IV (22:49)
[2020-01-23] VITALS (55 sets, daily range): BP systolic 89–120; BP diastolic 45–75; PULSE 63–79; RESP 14–18; TEMP 36.6–36.9; O2SAT 89–98
[2020-01-23] MEDS: sodium chloride 0.9% 1,000 ML 125 ML IV ×3 (01:07→17:33)
[2020-01-23 03:37] LABS: Basophils # 0.1 10^3/uL (0.0-0.1); Basophils % 0.6 %; Eosinophils # 0.3 10^3/uL (0.0-0.8); Eosinophils % 1.5 %; Hematocrit 30.8 % (42.0-52.0); Hemoglobin 9.1 g/dL (11.7-16.6); Lymphocytes # 3.3 10^3/uL (0.8-4.8); Lymphocytes % 15.9 %; Mean Corpuscular HGB Conc 29.5 g/dL (30.0-36.0); Mean Corpuscular Hemoglobin 19.6 pg (28.0-34.0); Mean Corpuscular Volume 66.4 fL (80-94); Mean Platelet Volume 9.6 fL (7.4-10.4); Monocytes # 2.3 10^3/uL (0.2-0.9); Monocytes % 10.9 %; Neutrophils # 14.81 10^3/uL (1.8-7.7); Neutrophils % 70.5 %; Nucleated Red Blood Cells # 0.3 /100WBC; Nucleated Red Blood Cells % 1.5 %; Platelet Count 393 10^3/cmm (130-400); Red Blood Count 4.64 10^6/uL (4.1-5.3); Red Cell Distribution Width 18.3 % (12.1-15.1)
[2020-01-23] MEDS: piperacillin-tazobactam 3.375 GM in sodium chloride 0.9% (plus) 50 ML IV ×2 (03:54→10:05)
[2020-01-23] MEDS: dexmedetomidine 400 MCG in sodium chloride 0.9% (100 ml) 100 ML 11.3 MCG IV ×3 (03:55→22:53)
[2020-01-23] MEDS: vancomycin 1,250 MG/250 ML PIGGYBACK 200 MG IV ×2 (03:55→10:56)
[2020-01-23 04:05] LABS: Creatine Phosphokinase 168 U/L (39-308)
[2020-01-23 04:06] LABS: Alanine Aminotransferase 32 U/L (0-41); Albumin Level 2.9 g/dL (3.5-5.2); Alkaline Phosphatase 90 IU/L (40-130); Anion Gap 16.1 (5-19); Aspartate Amino Transferase 20 U/L (0-40); Blood Urea Nitrogen 8 mg/dL (6-20); Calcium 8.4 mg/dL (8.5-10.5); Carbon Dioxide 19 mmol/L (22-29); Chloride 109 mmol/L (98-107); Globulin 2.7 g/dL (1.3-4.6); Glucose 86 mg/dL (65-115); Osmolality Calculated 288 mOsm/kg (285-295); Potassium 4.1 mmol/L (3.5-5.1); Sodium 140 mmol/L (136-145); Total Bilirubin 0.5 mg/dL (0.15-1.2); Total Protein 5.6 g/dL (6.6-8.7)
[2020-01-23 04:27] LABS: ABG PCO2 41.7 mmHg (35-45); ABG PH Result 7.31 (7.35-7.45); Arterial Blood Gas Hematocrit 28.8 % (42-52); Base Excess ABG -5.1 mmol/L (-2.0-2.0); Blood Gas Sample Site Brachial, left; Blood Gas Sample Type Arterial; HCO3 ABG 20.9 mmol/L (22-26); Oxygen Device VENT; PO2 ABG 79.1 mmHg (80.0-100.0)
--- NOTE | 2020-01-23 06:00 | PC.NURSE ---
Spoke to Josie with [facility] transfer center. Stated paperwork is ready just waiting on a bed for transfer. Will update us as soon as bed is ready.
[2020-01-23] MEDS: pantoprazole 40 mg SDV IVP (08:52)
[2020-01-23] MEDS: propofol 1,000 MG/100 ML INJ 10.9 MG IV (08:52)
[2020-01-23] MEDS: neomycin-poly-bacitracin oint 28 gm 1 APPLIC TOPICAL (09:54)
[2020-01-23] MEDS: lactated ringers 1,000 ML 999 ML IV (10:04)
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
[2020-01-23 10:42] LABS: Vancomycin Trough 8.2 ug/mL (10-15)
--- NOTE | 2020-01-23 13:12 | PC.NURSE ---
[facility] update Beth from [facility] transfer center called and ask for update. Nurse updated [facility] of current vital signs, Medications infusing, and vent settings.
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
--- NOTE | 2020-01-23 14:59 | XR_ITS ---
WS: [id number] Exam: XR chest 1V portable [id number] Date/Time of Exam: 01/23/2020 3:44 PM Reason For Exam: advanced OG tube Comparison 01/21/2020. ET tube is in place ending about 3 cm above the mara. The lungs are adequately ventilated. There is increased density in the left retrocardiac region that is suspicious for left lower lobe infiltrate. The lungs are fully inflated. An enteric tube ends in the fundus of the stomach. The side-port of th e tube is probably near the gastroesophageal junction. Monitoring leads superimpose the chest. XR/XR chest 1V portable [id number] IMPRESSION: 1. Increased density in the left retrocardiac region that is suspicious for lef t lower lobe infiltrate. This is a change. 2. ET tube ending about 3 cm above the mara. 3. Enteric tube in the fundus of the stomach. The side-port of the tube is prob ably near the GE junction.
--- NOTE | 2020-01-23 15:00 | PC.NURSE ---
OG tube upon assessment, nurse noted gastric contents on patient pillow. OG appears to be puled about 2 inches out from original placement. OG hooked to wall LIS with gastric content being removed. called and informed of finding STAT xray ordered to confirm placement. will continue to monitor.
[2020-01-23] MEDS: aztreonam 1,000 MG in sodium chloride 0.9% (plus) 50 ML 100 MG IV (15:47)
[2020-01-23] MEDS: propofol 1,000 MG/100 ML INJ 21.8 MG IV (15:47)
--- NOTE | 2020-01-23 16:30 | PC.NURSE ---
OG secretions Nurse noted cee red blood coming from OG tube. call to . No new orders at this time. verbal to informed and Dr.Datar Serrato at bedside. Verbal order for protonix gtt. Call to . informed on new findings. verbal order to get KUB
--- NOTE | 2020-01-23 16:52 | XR_ITS ---
WS: [id number] Exam: XR KUB portable [id number] Date/Time of Exam: 01/23/2020 5:13 PM Reason For Exam: Diaphragm No bowel obstruction or free air. No abnormal abdominal or pelvic calcifications. Surgical clips in t he upper left abdomen. 2 orthopedic screws bridge the right SI joint. Bony structures are intact. An enteric tube is noted ending in the fundus of the stomach however the side-port of the tube is probab ly at the gastroesophageal junction. XR/XR KUB portable [id number] IMPRESSION: 1. No acute abdominal finding. 2. Enteric tube in place ending in the fundus of the stomach however the side-p ort of the tube is probably at the gastroesophageal junction.
[2020-01-23] MEDS: pantoprazole 40 MG in sodium chloride 0.9% (plus) 100 ML 20 MG IV ×2 (17:33→22:03)
[2020-01-23] MEDS: vancomycin 1,500 MG/300 ML PIGGYBACK 200 MG IV (19:04)
[2020-01-23] MEDS: propofol 1,000 MG/100 ML INJ 13.1 MG IV (21:11)
[2020-01-24] VITALS (42 sets, daily range): BP systolic 95–118; BP diastolic 47–72; PULSE 68–79; RESP 15–17; TEMP 37.1–37.7; O2SAT 90–99
[2020-01-24] MEDS: sodium chloride 0.9% 1,000 ML 125 ML IV (02:43)
[2020-01-24] MEDS: aztreonam 1,000 MG in sodium chloride 0.9% (plus) 50 ML 100 MG IV (02:47)
[2020-01-24] MEDS: pantoprazole 40 MG in sodium chloride 0.9% (plus) 100 ML 20 MG IV ×3 (02:47→13:00)
[2020-01-24] MEDS: vancomycin 1,500 MG/300 ML PIGGYBACK 200 MG IV ×2 (03:35→12:05)
[2020-01-24] MEDS: propofol 1,000 MG/100 ML INJ 13.1 MG IV (03:36)
[2020-01-24 05:50] LABS: Basophils # 0.1 10^3/uL (0.0-0.1); Basophils % 0.5 %; Eosinophils # 0.4 10^3/uL (0.0-0.8); Eosinophils % 2.5 %; Hematocrit 30.1 % (42.0-52.0); Hemoglobin 9.1 g/dL (11.7-16.6); Lymphocytes # 2.6 10^3/uL (0.8-4.8); Lymphocytes % 15.8 %; Mean Corpuscular HGB Conc 30.2 g/dL (30.0-36.0); Mean Corpuscular Volume 66.3 fL (80-94); Mean Platelet Volume 9.5 fL (7.4-10.4); Monocytes % 12.3 %; Neutrophils # 11.36 10^3/uL (1.8-7.7); Neutrophils % 68.2 %; Nucleated Red Blood Cells # 0.2 /100WBC; Platelet Count 341 10^3/cmm (130-400); Red Blood Count 4.54 10^6/uL (4.1-5.3); Red Cell Distribution Width 18.2 % (12.1-15.1); White Blood Count 16.6 10^3/uL (4.0-10.0)
[2020-01-24] MEDS: neomycin-poly-bacitracin oint 28 gm 1 APPLIC TOPICAL (06:00)
--- NOTE | 2020-01-24 06:00 | XR_ITS ---
WS: [id number] Exam: XR chest 1V portable [id number] Date/Time of Exam: 01/24/2020 5:30 AM Reason For Exam: Hypoxia Comparison 01/23/2020. Again noted is increased left retrocardiac density suspicious for left lower lobe infiltrate. No francisco ge. Cardiomediastinal structures are unremarkable. ET tube remains in good position about 5 cm above the mara. An NG tube ends in the stomach however the side-port of the tube is at the GE junction. N o pleural effusions. The lungs are fully inflated. XR/XR chest 1V portable [id number] IMPRESSION: 1. Increased left retrocardiac density suspicious for left lower lobe infiltrat e. 2. ET tube in satisfactory position. 3. NG tube ending in the fundus of the stomach however the side-port of the tub e is at the GE junction. The tube should be advanced another 5 to 6 cm for opti mal position.
[2020-01-24 06:15] LABS: Alanine Aminotransferase 26 U/L (0-41); Albumin Level 2.7 g/dL (3.5-5.2); Alkaline Phosphatase 93 IU/L (40-130); Anion Gap 15.9 (5-19); Aspartate Amino Transferase 21 U/L (0-40); Blood Urea Nitrogen 5 mg/dL (6-20); Calcium 8.2 mg/dL (8.5-10.5); Carbon Dioxide 20 mmol/L (22-29); Chloride 106 mmol/L (98-107); Globulin 2.8 g/dL (1.3-4.6); Glucose 69 mg/dL (65-115); Osmolality Calculated 282 mOsm/kg (285-295); Potassium 3.9 mmol/L (3.5-5.1); Sodium 138 mmol/L (136-145); Total Bilirubin 0.5 mg/dL (0.15-1.2); Total Protein 5.5 g/dL (6.6-8.7)
[2020-01-24] MEDS: dexmedetomidine 400 MCG in sodium chloride 0.9% (100 ml) 100 ML 11.3 MCG IV ×2 (06:53→14:09)
[2020-01-24] MEDS: propofol 1,000 MG/100 ML INJ 17.4 MG IV (08:34)
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
[2020-01-24] MEDS: propofol 1,000 MG/100 ML INJ 15.2 MG IV (14:09)
--- NOTE | 2020-01-24 14:35 | PC.NURSE ---
Rounded with Dr. Alonzo. Plan for today is to transfer to [place]. Rounded with Dr. Florian, ordered MRSA swab, Blood cultures, UA, Solu-medrol and to DC IVF. PT sedated, VSS, Updated grandmother Marta Quintero on plan to transfer to [place]. Telephone consent obtained for transfer. Dr. Choudhary updated on transport via [facility]. Report called to Trudy Page RN.
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
== END 2020-01-24 14:28 | disposition short-term general hospital (02) | DRG 917 ==
LOC: ER 08:38 → ICU 01-21 04:40
PROVIDERS: Emergency Medicine; Admitting Provider Family Medicine; Emergency Provider Emergency Medicine; Visit Provider Internal Medicine
DX: T52.0X2A Toxic effect of petroleum products, intentional self-harm, initial encounter (principal); K22.11 Ulcer of esophagus with bleeding; J68.0 Bronchitis and pneumonitis due to chemicals, gases, fumes and vapors; R45.851 Suicidal ideations; G93.40 Encephalopathy, unspecified; M62.82 Rhabdomyolysis; K92.2 Gastrointestinal hemorrhage, unspecified; B18.2 Chronic viral hepatitis C; Z87.820 Personal history of traumatic brain injury; F17.210 Nicotine dependence, cigarettes, uncomplicated; Z81.8 Family history of other mental and behavioral disorders; F15.90 Other stimulant use, unspecified, uncomplicated; F12.90 Cannabis use, unspecified, uncomplicated; Z72.89 Other problems related to lifestyle; F11.10 Opioid abuse, uncomplicated; T24.511A Corrosion of first degree of right thigh, initial encounter; T21.55XA Corrosion of first degree of buttock, initial encounter; T21.56XA Corrosion of first degree of male genital region, initial encounter; T21.52XA Corrosion of first degree of abdominal wall, initial encounter; J43.9 Emphysema, unspecified; J38.4 Edema of larynx
CPT/HCPCS: 12345; 31500; 36415; 36600; 51701; 51702; 70490; 71045; 71250; 74018; 74176; 80051; 80053; 80202; 80306; 80307; 82330; 82550; 82553; 82803; 82805; 83605; 83735; 85025; 87040; 87070; 87077; 87086; 87205; 87641; 93005; 94002; 94003; 94799; 96372; 96375; 99285; C9113; J0131; J0330; J1630; J2060; J2250; J2543; J2704; J2920; J3010; J3370; J3490; J7030; J7040; J7050

== ENCOUNTER 2020-02-28 02:10 | Emergency (ER) | payer SELFPAY ==
[2020-02-28 02:12] VITALS: BP 125/79; PULSE 59; RESP 22; TEMP 36.1; O2SAT 99; BMI 25.1
--- NOTE | 2020-02-28 02:12 | CTR_ITS ---
PROCEDURE INFORMATION: Exam: CT Head Without Contrast Exam date and time: 02/28/2020 2:20 AM Age: 29 years old Clinical indication: Injury or trauma; Fall; Blunt trauma (contusions or hematomas); Patient HX: ETOH. Patient found unresponsive on front door step. Abrasion/lac to vertex of head. TECHNIQUE: Imaging protocol: Computed tomography of the head without contrast. Radiation optimization: All CT scans at this facility use at least one of these dose optimization techniques: automated exposure control; mA and/or kV adjustment per patient size (includes targeted exams where dose is matched to clinical indication); or iterative reconstruction. COMPARISON: No relevant prior studies available. RADIATION DOSE METRICS: Total DLP (mGy-cm): 1598.6 FINDINGS: Brain: Normal. No hemorrhage. Unremarkable white matter. No mass effect. Cerebral ventricles: No ventriculomegaly. Bones/joints: Unremarkable. No acute fracture. Paranasal sinuses: Visualized sinuses are unremarkable. No fluid levels. Mastoid air cells: Visualized mastoid air cells are well aerated. Soft tissues: Unremarkable. CT/CT head wo con* [id number] IMPRESSION: No acute intracranial abnormality. Radiation Dose CTDIVOL = (mGy): DLP = 1598.6 (mGy-cm)
--- NOTE | 2020-02-28 02:12 | CTR_ITS ---
PROCEDURE INFORMATION: Exam: CT Cervical Spine Without Contrast Exam date and time: 02/28/2020 2:20 AM Age: 29 years old Clinical indication: Injury or trauma; Fall; Blunt trauma; Patient HX: ETOH. Patient found unresponsive on front door step. Abrasion/lac to vertex of head. TECHNIQUE: Imaging protocol: Computed tomography images of the cervical spine without contrast. Radiation optimization: All CT scans at this facility use at least one of these dose optimization techniques: automated exposure control; mA and/or kV adjustment per patient size (includes targeted exams where dose is matched to clinical indication); or iterative reconstruction. COMPARISON: CT neck wo con [id number] 01/22/2020 12:55 PM RADIATION DOSE METRICS: Total DLP (mGy-cm): 657.37 FINDINGS: Bones/joints: No acute fracture. Normal alignment. Discs/Spinal canal/Neural foramina: No significant disc protrusion. No severe spinal canal stenosis. No significant neural foraminal narrowing. Lungs: Lung apices are normal. Soft tissues: Unremarkable. CT/CT cervical spin wo con* [id number] IMPRESSION: No acute findings. Radiation Dose CTDIVOL = (mGy): DLP = 657.37 (mGy-cm)
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
[2020-02-28 02:37] LABS: Basophils # 0.2 10^3/uL (0.0-0.1); Basophils % 0.9 %; Eosinophils # 0.1 10^3/uL (0.0-0.8); Eosinophils % 0.5 %; Hematocrit 42.9 % (42.0-52.0); Hemoglobin 13.4 g/dL (11.7-16.6); Lymphocytes # 6.2 10^3/uL (0.8-4.8); Lymphocytes % 31.2 %; Mean Corpuscular HGB Conc 31.2 g/dL (30.0-36.0); Mean Corpuscular Hemoglobin 20.4 pg (28.0-34.0); Mean Corpuscular Volume 65.3 fL (80-94); Mean Platelet Volume 8.9 fL (7.4-10.4); Monocytes # 2.1 10^3/uL (0.2-0.9); Monocytes % 10.5 %; Neutrophils # 11.14 10^3/uL (1.8-7.7); Neutrophils % 56.2 %; Nucleated Red Blood Cells # 0.5 /100WBC; Nucleated Red Blood Cells % 2.4 %; Platelet Count 569 10^3/cmm (130-400); Red Blood Count 6.57 10^6/uL (4.1-5.3); White Blood Count 19.8 10^3/uL (4.0-10.0)
[2020-02-28 02:41] VITALS: PULSE 63; RESP 16; O2SAT 98
[2020-02-28 02:55] LABS: Acetaminophen < 5.0 ug/mL (10-30); Alanine Aminotransferase 117 U/L (0-41); Albumin Level 4.8 g/dL (3.5-5.2); Alkaline Phosphatase 154 IU/L (40-130); Anion Gap 19.3 (5-19); Aspartate Amino Transferase 120 U/L (0-40); Blood Urea Nitrogen 12 mg/dL (6-20); Calcium 9.7 mg/dL (8.5-10.5); Carbon Dioxide 23 mmol/L (22-29); Chloride 103 mmol/L (98-107); Glomerular Filtration Rate 160.4 mL/min (90-130); Glucose 115 mg/dL (65-115); Osmolality Calculated 295 mOsm/kg (285-295); Potassium 3.3 mmol/L (3.5-5.1); Salicylate < 0.3 mg/dL (3-10); Sodium 142 mmol/L (136-145); Total Bilirubin 2.1 mg/dL (0.15-1.2); Total Protein 8.8 g/dL (6.6-8.7)
[2020-02-28 02:56] LABS: Alcohol Level 326 mg/dL (0-10)
[2020-02-28 04:35] VITALS: BP 135/72; PULSE 78; RESP 14; O2SAT 98
[2020-02-28 05:06] VITALS: BP 124/76; PULSE 78; RESP 18; O2SAT 97
[2020-02-28 06:30] VITALS: BP 128/82; BP 130/70; PULSE 70; PULSE 79; RESP 16; O2SAT 99
== END 2020-02-28 08:35 | disposition home or self-care (01) ==
PROVIDERS: Emergency Provider Emergency Medicine
DX: F10.920 Alcohol use, unspecified with intoxication, uncomplicated (principal); Z86.19 Personal history of other infectious and parasitic diseases; F17.210 Nicotine dependence, cigarettes, uncomplicated
CPT/HCPCS: 12345; 70450; 72125; 80053; 80307; 85025; 96374; 99282; 99283; J3411

== ENCOUNTER 2020-03-03 12:27 | Inpatient (IN) | payer SELFPAY ==
[2020-03-03 12:28] VITALS: BP 165/105; PULSE 101; RESP 18; TEMP 36.6; O2SAT 98; BMI 20.7
--- NOTE | 2020-03-03 13:13 | ED_ITS ---
HPI - Psych General: Chief Complaint: Psychiatric Symptoms Stated Complaint: LACERATIONS TO FOREHEAD, PSYCH EVAL Time Seen by Provider: 03/03/20 12:28 PFSH ED PFSH: Medical History Hepatitis C Chronic History of head injury Polysubstance abuse Surgical History History of dental surgery Hx of tonsillectomy Family History Grandmother Psychiatric illness depression Social History Smoking and tobacco status: current every day smoker cigarettes Packs smoked per day: 1 Alcohol intake: unknown Household members: family Marital status: Single Current occupational status: unemployed Procedures Laceration Laceration 1: Site: scalp Size (cm): 2.0 Description: linear Depth: simple, single layer Local Anesthetic: lidocaine 1% and with epi Amount of anesthesia used (mL): 3 Pre-repair: wound explored, irrigated extensively and deep structures intact Skin layer closed with: nylon Size (cm): 4-0 Number of sutures: 2 Technique: simple, interrupted Laceration 2: Site: scalp Size (cm): 5 Description: flap, irregular and contaminated (contused) Depth: simple, single layer Local Anesthetic: lidocaine 1% and with epi Amount of anesthesia used (mL): 4 Pre-repair: wound explored, irrigated extensively and deep structures intact Skin layer closed with: vicryl Size (cm): 4-0 Number of sutures: 6 MDM - Psych Lab Data: Labs: Lab Results 03/03/20 03/03/20 Range/Units 13:30 13:30 WBC 18.3 H (4.0-10.0) 10^3/ uL RBC 5.95 H (4.1-5.3) 10^6/u L Hgb 12.1 (11.7-16.6) g/dL Hct 39.5 L (42.0-52.0) % MCV 66.4 L (80-94) fL MCH 20.3 L (28.0-34.0) pg MCHC 30.6 (30.0-36.0) g/dL RDW 19.7 H (12.1-15.1) % Plt Count 591 H (130-400) 10^3/c mm MPV 8.7 (7.4-10.4) fL Neut % (Auto) 80.5 % Lymph % (Auto) 10.1 % [place] % (Auto) 7.4 % Eos % (Auto) 0.4 % Baso % (Auto) 0.7 % Neut # (Auto) 14.72 H (1.8-7.7) 10^3/u L Lymph # (Auto) 1.8 (0.8-4.8) 10^3/u L [place] # (Auto) 1.4 H (0.2-0.9) 10^3/u L Eos # (Auto) 0.1 (0.0-0.8) 10^3/u L Baso # (Auto) 0.1 (0.0-0.1) 10^3/u L Nucleated RBC % (a uto) 3.4 % Nucleated RBCs # 0.6 /100WBC Sodium 142 (136-145) mmol/L Potassium 3.9 (3.5-5.1) mmol/L Chloride 107 (98-107) mmol/L Carbon Dioxide 22 (22-29) mmol/L Anion Gap 16.9 (5-19) BUN 8 (6-20) mg/dL Creatinine 0.6 L (0.7-1.2) mg/dL GFR Calculation 160.4 H (90-130) mL/min Glucose 86 (65-115) mg/dL Calculated Osmolal ity 292 (285-295) mOsm/k g Calcium 8.8 (8.5-10.5) mg/dL Total Bilirubin 0.9 (0.15-1.2) mg/dL AST 66 H (0-40) U/L ALT 76 H (0-41) U/L Alkaline Phosphata se 128 (40-130) IU/L Total Protein 7.6 (6.6-8.7) g/dL Albumin 4.8 (3.5-5.2) g/dL Globulin 2.8 (1.3-4.6) g/dL Salicylates < 0.3 L (3-10) mg/dL Acetaminophen < 5.0 L (10-30) ug/mL Ethyl Alcohol 79 H (0-10) mg/dL Discharge Plan Discharge Patient Disposition: Admitted As Inpatient Admit Provider: Steve Armendariz Coding Level of Care Code ED Practice Business Asst for Sujey Angel
[2020-03-03 13:36] LABS: Basophils # 0.1 10^3/uL (0.0-0.1); Basophils % 0.7 %; Eosinophils # 0.1 10^3/uL (0.0-0.8); Eosinophils % 0.4 %; Hematocrit 39.5 % (42.0-52.0); Hemoglobin 12.1 g/dL (11.7-16.6); Lymphocytes # 1.8 10^3/uL (0.8-4.8); Lymphocytes % 10.1 %; Mean Corpuscular HGB Conc 30.6 g/dL (30.0-36.0); Mean Corpuscular Hemoglobin 20.3 pg (28.0-34.0); Mean Corpuscular Volume 66.4 fL (80-94); Mean Platelet Volume 8.7 fL (7.4-10.4); Monocytes # 1.4 10^3/uL (0.2-0.9); Monocytes % 7.4 %; Neutrophils # 14.72 10^3/uL (1.8-7.7); Neutrophils % 80.5 %; Nucleated Red Blood Cells # 0.6 /100WBC; Nucleated Red Blood Cells % 3.4 %; Platelet Count 591 10^3/cmm (130-400); Red Blood Count 5.95 10^6/uL (4.1-5.3); Red Cell Distribution Width 19.7 % (12.1-15.1); White Blood Count 18.3 10^3/uL (4.0-10.0)
[2020-03-03] MEDS: ziprasidone 20 mg/mL SDV 10 MG IM (13:45)
--- NOTE | 2020-03-03 14:00 | PC.NURSE ---
Sedation given my EMS has worn off. Patient stood up out of bed, stated he was leaving, then pulled out his IV. The patient was assisted back to bed. Direct pressure was held at IV site until bleed stopped. A pressure dressing was applied.
[2020-03-03 14:06] LABS: Alanine Aminotransferase 76 U/L (0-41); Albumin Level 4.8 g/dL (3.5-5.2); Alcohol Level 79 mg/dL (0-10); Alkaline Phosphatase 128 IU/L (40-130); Anion Gap 16.9 (5-19); Aspartate Amino Transferase 66 U/L (0-40); Blood Urea Nitrogen 8 mg/dL (6-20); Calcium 8.8 mg/dL (8.5-10.5); Carbon Dioxide 22 mmol/L (22-29); Chloride 107 mmol/L (98-107); Globulin 2.8 g/dL (1.3-4.6); Glomerular Filtration Rate 160.4 mL/min (90-130); Glucose 86 mg/dL (65-115); Osmolality Calculated 292 mOsm/kg (285-295); Potassium 3.9 mmol/L (3.5-5.1); Sodium 142 mmol/L (136-145); Total Bilirubin 0.9 mg/dL (0.15-1.2); Total Protein 7.6 g/dL (6.6-8.7)
[2020-03-03 14:22] LABS: Acetaminophen < 5.0 ug/mL (10-30); Salicylate < 0.3 mg/dL (3-10)
[2020-03-03 15:30] VITALS: BP 141/108; PULSE 75; RESP 16; O2SAT 98
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
[2020-03-03 16:19] VITALS: BP 155/106; PULSE 94; RESP 18; TEMP 36.7; O2SAT 97
[2020-03-03] MEDS: hyDROXYzine 25 mg Capsule 50 MG PO ×2 (16:36→20:22)
[2020-03-03] MEDS: acetaminophen 325 mg Tablet 650 MG PO (16:36)
--- NOTE | 2020-03-03 16:37 | PC.NURSE ---
PRN pain and anxiety Patient requested medication for head pain and anxiety. Given 50 mg vistaril po and 650 mg tylenol po.
[2020-03-03] MEDS: trazodone 50 mg Tablet PO (20:22)
[2020-03-03 20:24] VITALS: BP 116/65; PULSE 90; RESP 17; TEMP 37.9; O2SAT 96
[2020-03-04 06:00] VITALS: BP 157/104; PULSE 73; RESP 17; TEMP 36.9; O2SAT 97
[2020-03-04 10:44] LABS: Amphetamines Screen Urine Positive (Negative); Barbiturates Screen Urine Negative (Negative); Benzodiazepines Screen Urine Negative (Negative); Cocaine Screen Urine Negative (Negative); Opiate Screen Urine Negative (Negative); PCP Screen Urine Negative (Negative); THC Screen Urine Positive (Negative)
[2020-03-04 12:42] LABS: Add Urine Microscopic? YES; Bacteria Urine TRACE /hpf; Bilirubin Urine Neg (Negative); Blood Urine Neg (Negative); Glucose Urine UA Norm (Normal); Ketones Urine Negative (Negative); Leukocyte Esterase Urine Negative (Negative); Nitrate Urine Negative (Negative); Protein Urine Neg (Negative); RBC Urine 0-4 /hpf (0-2); Squamous Epithelial Cell Urine 0-4 /hpf (0-5); Urine Appearance Turbid (CLEAR); Urine Color Straw (Yellow); Urobilinogen Urine 1 mg/dL (Negative); WBC Urine 0-4 /hpf (0-5); pH Urine 5 (5-7)
[2020-03-04 12:43] LABS: Add Urine Culture? No; Amorphous Sediment Urine 4+ /hpf
[2020-03-04 14:00] VITALS: BP 141/96; PULSE 109; RESP 20; TEMP 36.8; O2SAT 98
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
[2020-03-04] MEDS: acetaminophen 325 mg Tablet 650 MG PO (14:24)
--- NOTE | 2020-03-04 14:25 | PC.NURSE ---
Addendum entered by Alexandra Bishop RN 03/04/20 15:20: Pt stated that he is still experiencing a headache and pain related to his head injury. He is still rating it a 7 at this time on a pain scale of 1-10. No relief at this time. However, pt has been on the telephone for the last 30 minutes and walking the halls without complaint. if pain continues to be an issue, I will contact the physician for additional care instruction. Original Note: Tylenol 650mg PO given for headache pain rated a 7 on a 1-10 pain scale, will continue to monitor pt
[2020-03-04] MEDS: LORazepam 2 mg/mL INJ 1 mL IM (16:08)
--- NOTE | 2020-03-04 16:09 | PC.NURSE ---
Addendum entered by Alexandra Bishop RN 03/04/20 16:48: Pt is calm at this time, rested in his room until dinner, and is now eating in the dayroom. Pt reports a decrease in his anxiety. Will continue to monitor Original Note: Ativan 2mg Im given for increased aggitation and aggression. Pt is pacing the hallway, visibly upset, and huffing his breath. He is very upset and tearful. Pt verbalizes he is upset and concerned with his legal situation and that he will go back to shelter. He asked nursing staff to help him before he explodes. Will continue to monitor pt behavior.
--- NOTE | 2020-03-04 16:14 | PC.NURSE ---
Addendum entered by Alexandra Bishop RN 03/04/20 18:12: Anna 6- pt responded well to ativan, much improved, calm and resting in his room at this time. Original Note: ANNA 14- Ativan given
[2020-03-04] MEDS: ibuprofen 800 mg tablet PO ×2 (16:38→21:15)
--- NOTE | 2020-03-04 16:57 | PC.NURSE ---
HEP C/Tylenol exception Pt is not to receive Tylenol due to Hep C.
--- NOTE | 2020-03-04 18:13 | PC.NURSE ---
kaylynnwa 6 Pt is resting in his room, calm, cooperative at this time.
[2020-03-04] MEDS: trazodone 50 mg Tablet PO (21:00)
[2020-03-04] MEDS: hyDROXYzine 25 mg Capsule 50 MG PO (21:00)
[2020-03-04] MEDS: tamsulosin 0.4 mg Capsule PO ×2 (21:00→21:15)
[2020-03-04] MEDS: OLANZapine 5 mg ODT PO (21:15)
[2020-03-04 22:00] VITALS: BP 167/114; PULSE 103; RESP 18; TEMP 37.7; O2SAT 98
[2020-03-05 06:00] VITALS: BP 152/86; PULSE 70; RESP 18; TEMP 37.7; O2SAT 100
[2020-03-05] MEDS: pantoprazole DR 40 mg Tablet PO (09:21)
[2020-03-05] MEDS: thiamine 100 mg Tablet PO (09:22)
[2020-03-05] MEDS: levoFLOXacin 500 mg Tablet PO (09:22)
[2020-03-05] MEDS: folic acid 1 mg Tablet PO (09:22)
[2020-03-05] MEDS: ibuprofen 800 mg tablet PO ×2 (09:22→14:43)
[2020-03-05] MEDS: multivitamin therapeutic Tablet 1 TAB PO (09:22)
[2020-03-05] MEDS: hyDROXYzine 25 mg Capsule 50 MG PO (11:14)
--- NOTE | 2020-03-05 11:15 | PC.NURSE ---
Anxiety/Vistaril 50mg Patient at nurses station reporting increased anxiety. PRN Vistaril 50mg given at this time. Will monitor for effectiveness of this medication.
[2020-03-05] MEDS: OLANZapine 5 mg ODT PO (13:10)
--- NOTE | 2020-03-05 15:35 | PC.RESP ---
Smoking Cessation information sent to patient.
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
[2020-03-05 17:22] VITALS: BP 152/86; PULSE 70; RESP 18; TEMP 37.7; O2SAT 100
[2020-03-05] MEDS: nicotine 2 mg Gum BUCCAL (18:00)
== END 2020-03-05 18:22 | disposition home or self-care (01) | DRG 897 ==
LOC: ER 14:09 → NP 15:13
PROVIDERS: Admitting Provider Psychiatry & Neurology Psychiatry; Emergency Provider Family Medicine; Visit Provider Psychiatry & Neurology Psychiatry
DX: F10.920 Alcohol use, unspecified with intoxication, uncomplicated (principal); B18.2 Chronic viral hepatitis C; Z91.5 Personal history of self-harm; F17.210 Nicotine dependence, cigarettes, uncomplicated; F63.81 Intermittent explosive disorder
CPT/HCPCS: 12345; 80053; 80306; 80307; 81001; 85025; 96372; 99284; J2060; J3486

== ENCOUNTER 2023-03-17 16:11 | Emergency (ER) | payer BC, MEDICAID, SELFPAY ==
[2023-03-17 16:24] VITALS: BP 174/128; PULSE 108; RESP 18; TEMP 37.9; O2SAT 98; BMI 23.2
--- NOTE | 2023-03-17 16:33 | ED.C_ITS ---
HPI - Psych General: Chief Complaint: Psychiatric Symptoms Stated Complaint: 96 hour hold Time Seen by Provider: 03/17/23 16:13 Source: police Mode of arrival: other (police) Limitations: no limitations History of Present Illness: 33-year-old male is here from senior care. He has been in senior care for 8 months he had psychosis over the last 2 to 3 months he is expressed suicidal thoughts patient's been admitted here for psychosis in the past and he refused to take all meds patient was placed on a 96-hour hold and brought here for a psych eval. Patient states that he has had suicidal thoughts no specific plans he states he does not like he is treated at senior care. Associated symptoms: Reports depression and suicidal ideation Review of Systems Const: Denies: fever(s), chills, body aches or change in appetite Eyes: Denies: blurry vision or eye discomfort ENMT: Denies: throat pain or dental pain Card: Denies: chest pain Resp: Denies: dyspnea GI: Denies: abdominal pain, nausea, vomiting or diarrhea : Denies: dysuria Musc: Denies: neck pain or back pain Skin/Breast: Denies: rash Neuro: Denies: headache(s) Psych: Reports: depression and suicidal ideation PFSH ED PFSH: Medical History History of head injury Polysubstance abuse Hepatitis C Chronic Surgical History Hx of tonsillectomy History of dental surgery Family History Grandmother Psychiatric illness depression Social History Smoking and tobacco/nicotine status: current every day tobacco/nicotine user cigarettes Packs smoked per day: 1 Alcohol intake: unknown Substance/Drug Use: current Household members: family Marital status: Single Current occupational status: unemployed Course Vital Signs: Vital signs: Vital Signs Temperature 100.3 F H 03/17/23 16:24 Pulse Rate 112 H 03/17/23 18:56 Respiratory Rate 18 03/17/23 16:24 Blood Pressure 159/112 03/17/23 18:56 Pulse Oximetry 95 03/17/23 18:56 Oxygen Delivery Me thod Room Air 03/17/23 16:24 MDM - Psych Medical Decision Making patient had been brought here from senior care for psych eval up spoke to the windshield repair technician they are not going to for low the patient will release him from custody and are not willing to keep a guard with him at all times up spoke to Dr. Armendariz her psychiatrist who seen patient in the ER who recommends treatment at the senior care at this time as he does not feel comfortable admitting to the psych purvis as he is incarcerated without a guard will start Abilify and discharge patient Medical Records I reviewed the patient's medical records. No radiology studies performed this visit Discharge Plan Discharge Patient Disposition: Home Clinical Impression: Acute psychosis Condition: Stable Prescriptions: New Abilify 10 mg tablet 10 mg PO .qhs 7 Days Qty: 60 0RF No Action pantoprazole 40 mg Tablet,Delayed Release (Dr/Ec) 40 mg PO DAILY 30 Days Qty: 30 1RF Discharge Orders: Discharge ED (Routine); Ordered 03/17/23 Ordered By: Amilcar Connor Discharge Diet: Advance as tolerated Discharge Activity: Resume usual activity Patient Instructions: Psychotic Disorder (ED) Coding Level of Care Code ED Equipment Or Machinery Cleaner for Sujey Angel
--- NOTE | 2023-03-17 18:53 | PC.NURSE ---
pt officer officer came out with pt, with a hateful attitude, wanting to know when they were leaving. this nurse explained we had to print paperwork. have it signed. and then pt also had a med that was ordered 10 minutes prior. pt and officer sent back to room.
[2023-03-17 18:56] VITALS: BP 159/112; PULSE 112; O2SAT 95
== END 2023-03-17 18:55 | disposition home or self-care (01) ==
PROVIDERS: Emergency Provider Emergency Medicine
DX: F23 Brief psychotic disorder (principal); Z86.19 Personal history of other infectious and parasitic diseases; Z72.0 Tobacco use
CPT/HCPCS: 99283